=== PATIENT | female | born 1960 | race Hispanic/Latino ===

== ENCOUNTER 2022-07-04 13:33 | Emergency (ER) | payer OTHER ==
[~2022-07-04] VITALS: Ht 160 cm; Wt 90.7 kg
[2022-07-04 13:47] VITALS: BP 164/90
[2022-07-04] MEDS ORDERED: PRED20TA3 PO (16:29)
== END 2022-07-04 16:52 | disposition home or self-care (01) ==
LOC: EDH 13:33
DX: G51.0 Bell's palsy (principal); Z79.52 Long term (current) use of systemic steroids